=== PATIENT | male | born 1990 | race Caucasian/White ===

== ENCOUNTER 2017-01-28 19:27 | Emergency (ER) | payer OTHER ==
[~2017-01-28] VITALS: Ht 180.3 cm; Wt 88.9 kg
== END 2017-01-28 21:15 | disposition home or self-care (01) ==
LOC: ED 19:27
DX: S00.83XA Contusion of other part of head, initial encounter (principal); Z87.891 Personal history of nicotine dependence; Z88.0 Allergy status to penicillin; W21.07XA Struck by softball, initial encounter
CPT/HCPCS: 70450; 70486; 99284

== ENCOUNTER 2019-02-04 08:45 | Emergency (ER) | payer OTHER ==
[~2019-02-04] VITALS: Ht 180.3 cm; Wt 97.1 kg
[2019-02-04] MEDS ORDERED: MOBIC15 MG PO (09:32)
== END 2019-02-04 11:49 | disposition home or self-care (01) ==
LOC: ED 08:45
DX: R10.11 Right upper quadrant pain (principal); Z87.891 Personal history of nicotine dependence; Z88.0 Allergy status to penicillin; Z79.899 Other long term (current) drug therapy
CPT/HCPCS: 80053; 81001; 83690; 85025; 99284